=== PATIENT | male | born 1990 | race Caucasian/White ===

== ENCOUNTER → 2022-12-01 | Emergency (ER) | payer MEDICAID ==
[~2022-12-01] VITALS: Ht 180.3 cm; Wt 68.0 kg
[~2022-12-01] MED LIST: CEPH500T PO; CEPHALEXIN MONOHYDRATE 500 MG CAPSULE PO ONE; DOXY100C2 PO; SULF1TAB48 PO; SULFAMETH/TRIMETH 800/160 MG 1 UDTAB TABLET ONE; SULFAMETH/TRIMETH 800/160 MG 1 UDTAB TABLET PO ONE; TDAP [DIPH/PERTUSSIS/TET] 0.5 ML VIAL IM ONE
[2022-12-01 23:39] VITALS: BP 126/73; TEMP 98.4; O2SAT 98
== END | disposition home or self-care (01) ==
LOC: ER 22:26
DX: S90.511A Abrasion, right ankle, initial encounter (principal); L03.115 Cellulitis of right lower limb; W22.8XXA Striking against or struck by other objects, initial encounter; Y93.89 Activity, other specified; Y92.89 Other specified places as the place of occurrence of the external cause; Y99.8 Other external cause status
CPT/HCPCS: 90715

== ENCOUNTER 2022-12-03 21:58 | Emergency (ER) | payer MEDICAID ==
[~2022-12-03] VITALS: Ht 180.3 cm; Wt 81.6 kg
[~2022-12-03 21:58] MED LIST changes: -CEPHALEXIN MONOHYDRATE 500 MG CAPSULE PO ONE; -DOXY100C2 PO; -SULFAMETH/TRIMETH 800/160 MG 1 UDTAB TABLET ONE; -SULFAMETH/TRIMETH 800/160 MG 1 UDTAB TABLET PO ONE; -TDAP [DIPH/PERTUSSIS/TET] 0.5 ML VIAL IM ONE
[2022-12-03 23:08] VITALS: BP 141/72; TEMP 98; O2SAT 98
[2022-12-08] MEDS ORDERED: DOXY100C2 PO (08:18)
== END 2022-12-04 00:01 | disposition home or self-care (01) ==
LOC: ER 22:16
DX: L53.8 Other specified erythematous conditions (principal); Z79.899 Other long term (current) drug therapy

== ENCOUNTER 2022-12-05 19:09 | Inpatient (IN) | payer MEDICAID ==
[~2022-12-05] VITALS: Ht 172.7 cm; Wt 88.9 kg
[2022-12-05] MEDS ORDERED: VANCOMYCIN 1 GM in IV D5W 250 ML IV ONE (22:00)
[2022-12-05] MEDS ORDERED: CEFEPIME 1 GM in IV D5W 50 ML IV ONE (22:00)
[2022-12-05] MEDS ORDERED: VANCOMYCIN 1 GM /D5W 250 ML PB IV ONE (22:31)
[2022-12-05] MEDS ORDERED: CEFEPIME 1 GM VIAL ONE (22:31)
[2022-12-05 22:52] LABS: INR 1.02 (0.91-1.10); PARTIAL THROMBOPLASTIN TIME 29.2 SEC (24.3-34.3); PROTHROMBIN TIME 10.7 SECS (9.2-11.1)
[2022-12-05 22:55] LABS: CALCIUM, SERUM 9.6 mg/dL (8.5-10.1); CREATININE 1.2 mg/dL (0.6-1.3); POTASSIUM 4.1 mmol/L (3.5-5.1)
[2022-12-05 22:56] LABS: BASOPHILS % (AUTO) 0.4 % (0.0-2.0); EOSINOPHILS # (AUTO) 0.1 K/uL (0.0-0.7); EOSINOPHILS % (AUTO) 0.9 % (0.0-6.0); HEMATOCRIT 44 % (39-51); HEMOGLOBIN 14.8 g/dL (13.5-17.5); LYMPHOCYTES # (AUTO) 1.6 K/uL (0.8-4.8); LYMPHOCYTES % (AUTO) 28.8 % (20.0-44.0); MEAN CORPUSCULAR HEMOGLOBIN 29 PG (26.0-33.0); MEAN CORPUSCULAR HGB CONC 34 g/dl (31.0-36.0); MEAN CORPUSCULAR VOLUME 87 fL (80-96); MONOCYTES # (AUTO) 0.5 K/uL (0.1-1.30); MONOCYTES % (AUTO) 9.5 % (2.0-12.0); NEUTROPHILS # (AUTO) 3.4 K/uL (1.8-8.9); NEUTROPHILS % (AUTO) 60.4 % (43.0-81.0); PLATELET COUNT (AUTO) 211 K/uL (150-450); RED BLOOD CELL COUNT(AUTO) 5.05 MIL/uL (4.5-6.0); RED CELL DISTRIBUTION WIDTH 14.6 % (11.5-15.0); WHITE BLOOD COUNT (AUTO) 5.7 K/uL (4.3-11.0)
[2022-12-05 23:07] LABS: LACTIC ACID 1.1 mmol/L (0.4-2.0)
[2022-12-05 23:14] LABS: ALBUMIN 4.1 g/dL (3.4-5.0); BILIRUBIN,DIRECT 0.2 mg/dL (0.0-0.2); BILIRUBIN,TOTAL 0.7 mg/dL (0.2-1.0); TOTAL PROTEIN, SERUM 7.7 g/dL (6.4-8.2)
[2022-12-06 02:30] VITALS: BP 103/56; TEMP 98.1; O2SAT 96
[2022-12-06] MEDS ORDERED: HYDROCODONE/APAP 5/325MG TABLET PO PRN (03:00)
[2022-12-06] MEDS ORDERED: ZOLPIDEM TARTRATE 5 MG TABLET PO PRN (03:00)
[2022-12-06] MEDS ORDERED: ACETAMINOPHEN 325 MG TABLET PO PRN (03:00)
[2022-12-06] MEDS ORDERED: CEFEPIME 1 GM in IV D5W 50 ML IV SCH (05:00)
[2022-12-06] MEDS ORDERED: CEFEPIME 1 GM VIAL ONE (05:30)
[2022-12-06] MEDS ORDERED: VANCOMYCIN 1 GM /D5W 250 ML PB IV ONE (06:33)
[2022-12-06 07:00] VITALS: BP 104/65; TEMP 98.4; O2SAT 98
[2022-12-06] MEDS ORDERED: VANCOMYCIN 1 GM in IV D5W 250ml IV ONE (07:00)
[2022-12-06 07:02] LABS: BASOPHILS % (AUTO) 0.7 % (0.0-2.0); EOSINOPHILS # (AUTO) 0.1 K/uL (0.0-0.7); EOSINOPHILS % (AUTO) 2.3 % (0.0-6.0); HEMATOCRIT 40 % (39-51); HEMOGLOBIN 14.1 g/dL (13.5-17.5); LYMPHOCYTES # (AUTO) 1.3 K/uL (0.8-4.8); LYMPHOCYTES % (AUTO) 28.7 % (20.0-44.0); MEAN CORPUSCULAR HEMOGLOBIN 30 PG (26.0-33.0); MEAN CORPUSCULAR HGB CONC 35 g/dl (31.0-36.0); MEAN CORPUSCULAR VOLUME 86 fL (80-96); MONOCYTES # (AUTO) 0.6 K/uL (0.1-1.30); MONOCYTES % (AUTO) 13.3 % (2.0-12.0); NEUTROPHILS # (AUTO) 2.4 K/uL (1.8-8.9); PLATELET COUNT (AUTO) 201 K/uL (150-450); RED BLOOD CELL COUNT(AUTO) 4.71 MIL/uL (4.5-6.0); RED CELL DISTRIBUTION WIDTH 14.1 % (11.5-15.0); WHITE BLOOD COUNT (AUTO) 4.4 K/uL (4.3-11.0)
[2022-12-06 07:22] LABS: CALCIUM, SERUM 9.5 mg/dL (8.5-10.1); CREATININE 1.1 mg/dL (0.6-1.3); POTASSIUM 4.1 mmol/L (3.5-5.1)
[2022-12-06] MEDS ORDERED: CEPH500T PO (07:33)
[2022-12-06] MEDS ORDERED: SULF1TAB48 PO (07:33)
[2022-12-06] MEDS: ENOXAPARIN SODIUM 40 MG/0.4 ML DISP.SYRIN SQ SCH (08:11)
[2022-12-06 16:00] VITALS: BP 94/50; TEMP 98.1; O2SAT 98
[2022-12-06 20:00] VITALS: BP 102/57; TEMP 97.8; O2SAT 99
[2022-12-06] MEDS: VANCOMYCIN 1.25 GM in IV D5W 250 ML IV SCH (20:07)
[2022-12-06] MEDS: CEFEPIME 2 GM in IV D5W 100 ML IV SCH (22:07)
[2022-12-07 06:43] LABS: CALCIUM, SERUM 9.3 mg/dL (8.5-10.1); CREATININE 1.1 mg/dL (0.6-1.3); POTASSIUM 4.7 mmol/L (3.5-5.1)
[2022-12-07] MEDS: VANCOMYCIN 1.25 GM in IV D5W 250 ML IV SCH ×2 (07:31→20:38)
[2022-12-07 08:00] VITALS: BP 124/68; TEMP 98.3; O2SAT 99
[2022-12-07] MEDS: ENOXAPARIN SODIUM 40 MG/0.4 ML DISP.SYRIN SQ SCH (09:55)
[2022-12-07] MEDS: CEFEPIME 2 GM in IV D5W 100 ML IV SCH ×2 (10:59→22:02)
[2022-12-07 18:54] VITALS: BP 108/62; TEMP 99.9; O2SAT 95
[2022-12-07 20:00] VITALS: BP 116/67; TEMP 98.5; O2SAT 96
[2022-12-08 07:41] LABS: CALCIUM, SERUM 9.6 mg/dL (8.5-10.1); POTASSIUM 4.2 mmol/L (3.5-5.1)
[2022-12-08 08:00] VITALS: BP 117/74; TEMP 98.1; O2SAT 97
[2022-12-08] MEDS: VANCOMYCIN 1.25 GM in IV D5W 250 ML IV SCH (08:03)
[2022-12-08] MEDS ORDERED: DOXY100C2 PO (08:18)
[2022-12-08] MEDS: ENOXAPARIN SODIUM 40 MG/0.4 ML DISP.SYRIN SQ SCH (08:41)
[2022-12-08] MEDS: CEFEPIME 2 GM in IV D5W 100 ML IV SCH (09:01)
[2022-12-08] MEDS ORDERED: VANCOMYCIN 1 GM in IV D5W 250ml IV SCH (16:00)
== END 2022-12-08 11:43 | disposition home health service (06) | DRG 383 ==
LOC: ER 19:22 → MED 12-06 01:39
PROVIDERS: ADMIT Internal Medicine; ATTEND Internal Medicine
DX: L03.115 Cellulitis of right lower limb (principal); S81.801A Unspecified open wound, right lower leg, initial encounter; X58.XXXA Exposure to other specified factors, initial encounter; Y93.9 Activity, unspecified; Y92.009 Unspecified place in unspecified non-institutional (private) residence as the place of occurrence of the external cause
CPT/HCPCS: 36415; 73590-TC; 80048-TC; 80076-TC; 80202-TC; 83605-TC; 85025-TC; 85652-TC; 85730-TC; 86140-TC; 87040-TC; A4223; A6403; G0378; J0692; J1650; J3370; J7050; J7060

== ENCOUNTER 2022-12-18 19:50 | Emergency (ER) | payer MEDICAID ==
[~2022-12-18] VITALS: Ht 185.4 cm; Wt 90.7 kg
[~2022-12-18 19:50] MED LIST changes: +DOXY100C2 PO
[2022-12-18 21:39] LABS: BASOPHILS % (AUTO) 0.9 % (0.0-2.0); EOSINOPHILS # (AUTO) 0.1 K/uL (0.0-0.7); EOSINOPHILS % (AUTO) 2.3 % (0.0-6.0); HEMATOCRIT 43 % (39-51); HEMOGLOBIN 14.7 g/dL (13.5-17.5); LYMPHOCYTES # (AUTO) 1.7 K/uL (0.8-4.8); LYMPHOCYTES % (AUTO) 32.3 % (20.0-44.0); MEAN CORPUSCULAR HEMOGLOBIN 30 PG (26.0-33.0); MEAN CORPUSCULAR HGB CONC 35 g/dl (31.0-36.0); MEAN CORPUSCULAR VOLUME 87 fL (80-96); MONOCYTES # (AUTO) 0.6 K/uL (0.1-1.30); MONOCYTES % (AUTO) 11.2 % (2.0-12.0); NEUTROPHILS # (AUTO) 2.8 K/uL (1.8-8.9); NEUTROPHILS % (AUTO) 53.3 % (43.0-81.0); PLATELET COUNT (AUTO) 242 K/uL (150-450); RED BLOOD CELL COUNT(AUTO) 4.87 MIL/uL (4.5-6.0); RED CELL DISTRIBUTION WIDTH 14.5 % (11.5-15.0); WHITE BLOOD COUNT (AUTO) 5.3 K/uL (4.3-11.0)
[2022-12-18 21:46] LABS: CALCIUM, SERUM 8.8 mg/dL (8.5-10.1); POTASSIUM 3.6 mmol/L (3.5-5.1)
[2022-12-18 22:23] LABS: LACTIC ACID 0.8 mmol/L (0.4-2.0)
[2022-12-18] MEDS ORDERED: DOXYCYCLINE HYCLATE (100 MG) 100 MG TABLET ONE (22:28)
[2022-12-18] MEDS ORDERED: DOXYCYCLINE HYCLATE (100 MG) 100 MG TABLET PO ONE (22:30)
[2022-12-18] MEDS ORDERED: DOXY-326 PO (22:33)
[2022-12-18] MEDS ORDERED: CLOT15CR27 TP (22:37)
[2022-12-18 23:12] VITALS: BP 119/82; TEMP 98.1; O2SAT 96
== END 2022-12-18 23:12 | disposition home or self-care (01) ==
LOC: ER 20:00
DX: L03.115 Cellulitis of right lower limb (principal); M25.471 Effusion, right ankle; Z91.018 Allergy to other foods
CPT/HCPCS: 36415; 80048-TC; 83605-TC; 85025-TC; 87040-TC; 93971-TC

== ENCOUNTER 2023-06-23 22:21 | Emergency (ER) | payer MEDICAID ==
[~2023-06-23] VITALS: Ht 182.9 cm; Wt 86.2 kg
[~2023-06-23 22:21] MED LIST changes: +CLOT15CR27 TP; +DOXY-326 PO
[2023-06-23] MEDS ORDERED: ERYT3.5O9 EACHEYE (23:53)
[2023-06-23 23:59] VITALS: BP 132/73; TEMP 98; O2SAT 98
== END 2023-06-24 | disposition home or self-care (01) ==
LOC: ER 22:39
DX: H00.012 Hordeolum externum right lower eyelid (principal); Z91.018 Allergy to other foods

== ENCOUNTER 2024-04-19 17:54 | Emergency (ER) | payer MEDICAID ==
[~2024-04-19] VITALS: Ht 177.8 cm; Wt 95.3 kg
[~2024-04-19 17:54] MED LIST changes: +ERYT3.5O9 EACHEYE
[2024-04-19 19:13] VITALS: BP 152/85; TEMP 98.2; O2SAT 99
== END 2024-04-19 21:21 | disposition home or self-care (01) ==
LOC: ER 18:33
DX: J20.9 Acute bronchitis, unspecified (principal); Z91.018 Allergy to other foods

== ENCOUNTER 2024-05-28 15:54 | Emergency (ER) | payer MEDICAID ==
[~2024-05-28] VITALS: Ht 185.4 cm; Wt 102.1 kg
[2024-05-28] MEDS ORDERED: TRIA15OI9 TP (16:59)
[2024-05-28] MEDS ORDERED: PRED20TA PO (16:59)
[2024-05-28] MEDS ORDERED: HYDR-500 PO (16:59)
[2024-05-28 17:26] LABS: BASOPHILS % (AUTO) 0.7 % (0.0-2.0); EOSINOPHILS # (AUTO) 0.1 K/uL (0.0-0.7); EOSINOPHILS % (AUTO) 1.8 % (0.0-6.0); HEMATOCRIT 46 % (39-51); HEMOGLOBIN 15.9 g/dL (13.5-17.5); LYMPHOCYTES # (AUTO) 1.8 K/uL (0.8-4.8); LYMPHOCYTES % (AUTO) 25.6 % (20.0-44.0); MEAN CORPUSCULAR HEMOGLOBIN 31 PG (26.0-33.0); MEAN CORPUSCULAR HGB CONC 35 g/dl (31.0-36.0); MEAN CORPUSCULAR VOLUME 90 fL (80-96); MONOCYTES # (AUTO) 0.6 K/uL (0.1-1.30); MONOCYTES % (AUTO) 8.1 % (2.0-12.0); NEUTROPHILS # (AUTO) 4.4 K/uL (1.8-8.9); NEUTROPHILS % (AUTO) 63.8 % (43.0-81.0); PLATELET COUNT (AUTO) 224 K/uL (150-450); RED BLOOD CELL COUNT(AUTO) 5.12 MIL/uL (4.5-6.0); WHITE BLOOD COUNT (AUTO) 6.8 K/uL (4.3-11.0)
[2024-05-28 18:22] VITALS: BP 122/76; TEMP 98.3; O2SAT 98
== END 2024-05-28 18:23 | disposition home or self-care (01) ==
LOC: ER 15:58
DX: L30.9 Dermatitis, unspecified (principal); Z79.52 Long term (current) use of systemic steroids
CPT/HCPCS: 36415; 85025-TC